=== PATIENT | female | born 1955 | race Caucasian/White ===

== ENCOUNTER 2017-05-27 16:58 | Outpatient (CLI) | payer OTHER ==
--- NOTE | 2017-05-27 20:35 | RAD ---
RIGHT KNEE FOUR VIEWS: 05/27/17 No fracture, dislocation, or joint space narrowing was seen. There is a sizable joint effusion. Some bony spurring is seen along the top of the patella. IMPRESSION: Joint effusion. POS: HOME
== END 2017-05-27 16:59 | disposition home or self-care (01) ==
LOC: BURRAD 16:58
PROVIDERS: ATTEND Family Medicine
DX: M25.561 Pain in right knee (principal); M25.461 Effusion, right knee